=== PATIENT | male | born 1980 | race Caucasian/White ===

== ENCOUNTER 2023-06-10 04:25 | Outpatient (CLI) | payer MEDICAID, SELFPAY ==
[2023-06-10] MEDS: Inhaler, Assist Device 1 EACH MC (09:08)
[2023-06-10] MEDS: Levalbuterol HFA 15 GM INH 4 PUFF IH (09:08)
--- NOTE | 2023-06-14 10:32 | W.PFT ---
Date of service: 06/10/23 Time of Service: 07:51 Pulmonary Function Test Result Indications: Dyspnea Interpretation Spirometry: There is no airflow limitation. There is no bronchodilator response. Lung Volumes: Normal lung volumes Diffusion Capacity: Elevated diffusion Airway Pressure: Normal airways resistance. Impression Normal pulmonary function testing. The elevated diffusion is likely due to the elevated BMI. Clinical Correlation therefore is recommended.
== END 2023-06-10 04:26 | disposition home or self-care (01) ==
LOC: RT 04:25
PROVIDERS: PCP Internal Medicine; Visit Provider Surgery
DX: J45.909 Unspecified asthma, uncomplicated (principal)
CPT/HCPCS: 94060; 94726; 94729

== ENCOUNTER 2023-06-13 09:15 | Outpatient (CLI) | payer MEDICAID, SELFPAY ==
[2023-06-13 09:46] LABS: Abs Immature Grans 0.03 10^3/uL (0.0-0.06); Absolute Basophil Count 0.04 10^3/uL (0.0-0.2); Absolute Eosinophil Count 0.06 10^3/uL (0.0-0.7); Absolute Lymphocyte Count 1.54 10^3/uL (1.2-3.4); Absolute Monocyte Count 0.56 10^3/uL (0.1-0.8); Absolute Neutrophil Count 3.69 10^3/uL (1.2-6.7); Basophils % 0.7; HCT 47.6 % (40.0-50.0); HGB 16.1 g/dL (13.5-17.5); Immature Grans % 0.5; MCH 28.8 pg (27.0-33.0); MCHC 33.8 % (32.0-36.0); MCV 85 fL (80-95); MPV 8.7 fL (8.0-11.0); Monocytes % 9.5; Neutrophils % 62.3; Platelet Count 335 10^3/uL (130-400); RBC 5.59 10^6/uL (4.36-5.78); RDW 12.9 % (11.8-14.1); RDW-SD 40.1 fL; WBC 5.92 10^3/uL (4.4-10.8)
[2023-06-15 08:20] LABS: IgE 84 IU/mL (<158)
== END 2023-06-13 09:16 | disposition home or self-care (01) ==
LOC: LBO 09:16
PROVIDERS: PCP Internal Medicine; Visit Provider Physician Assistant Surgical
DX: J82.83 Eosinophilic asthma (principal); G47.33 Obstructive sleep apnea (adult) (pediatric); R06.09 Other forms of dyspnea; Z13.89 Encounter for screening for other disorder
CPT/HCPCS: 36415; 82785; 85025

== ENCOUNTER 2023-08-16 11:01 | Day surgery (SDC) | payer MEDICAID, SELFPAY ==
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
--- NOTE | 2023-08-15 15:47 | PDOC.DSDIS_ITS ---
Date of service: 08/16/23 Time of Service: 16:10 Discharge Plan Disposition Patient Disposition: Home Condition: Good Discharge Details Reason For Visit: stomach and colon scopes Attending Provider: Ofelia Muñoz Primary Care Provider: Josefa,Local Home Meds and New Rx's Prescriptions: Continued Dulera 200-5 mcg/actuation HFA aerosol inhaler 2 puff inhalation BID omeprazole 40 mg capsule,delayed release(DR/EC) 40 mg PO DAILY Qty: 30 12RF albuterol sulfate [ProAir HFA] 90 mcg/actuation HFA aerosol inhaler 2 puff inhalation Q6H PRN loratadine [Allergy Relief (loratadine)] 10 mg tablet 10 mg PO DAILY PRN fluticasone propionate [Flovent HFA] See Rx Instructions inhalation DIRECTED Patient Comments: 08/16/23: pt reports he does not take now, replaced with Dulera Rx Instructions: inhaled as directed; Discontinued polyethylene glycol 3350 17 gram/dose powder 238 g PO ONCE Qty: 238 0RF Rx Instructions: take per colonoscopy instructions bisacodyl [Dulcolax (bisacodyl)] 5 mg tablet,delayed release (DR/EC) 5 mg PO ONCE Qty: 4 0RF Rx Instructions: take per colonoscopy instructions No Action cetirizine 10 mg tablet Patient Comments: TAKE ONE TABLET BY MOUTH EVERY DAY alprazolam 0.25 mg tablet Patient Comments: TAKE ONE TABLET BY MOUTH EVERY DAY NEEDED Discharge Instructions Additional Instructions: DSU Colonoscopy Post- Op Instructions Instructions for Everyone who is given Anesthesia: For your safety, please do the following for the next twenty-four (24) hours: *Do Not operate a motor vehicle (car, truck, motorcycle, etc.) *Do Not drink alcoholic beverages or use any recreational drugs for the first 24 hours or while taking pain medications. The medications in your body may have a reaction that can be dangerous. *Do Not make any important decisions or sign any important papers. Findings: Esophagus/stomach-grossly normal on visualization today. Biopsies pending. Colon: polyps-my office will send you a copy of the biopsy report in 2 to 3 weeks time, and when we want you to repeat the colonoscopy Follow up: Repeat colonoscopy in 5 years time, pending results of biopsy 1. No lifting over 20 pounds or strenuous activity for the first 24 hours after your procedure. After 24 hours there are no restrictions on your activity but you may feel fatigued for a few days. 2. After you arrive home you may have a light meal and return to your normal diet as you can tolerate it without feeling sick to your stomach. 3. You may have a bloated, gaseous feeling in your belly (abdomen) after a colonoscopy. Passing gas and belching will help. Walking or lying down on your left side with your knees flexed may relieve the discomfort. Call the office at [phone] (Office) or [phone] (Hospital) right away if you notice any of the following: a.Vomiting of blood or ?coffee ground stools?. b.Rectal bleeding 1Tbsp, blood clots or continuous bleeding. c.Severe belly (abdominal) pain. d.A hard distended belly (abdomen) and an inability to pass gas. 4. Please don?t expect to have a normal BM (bowel movement) for 2-3 days after your procedure. 5. If there are questions regarding the findings of your procedure, please contact your doctor 6. If you are unable to contact your doctor with a problem, contact the hospital at [phone]. 7. Continue all your regular medications unless directed otherwise. I understand the above instructions and have no questions. Signature of Patient or Adult Escort Name of Responsible Adult Escort Signature of Nurse Date/Time Stand Alone Forms: Anesthesia Discharge Connor Villegas (DSU) Activity:: see above Diet:: see above Discharge Orders Discharge Orders: Discharge Order (Routine); Ordered 08/16/23 Ordered By: Ofelia Muñoz DS: Diagnosis Discharge Diagnosis (1) Sleep apnea: Status: Acute (2) Gastroesophageal reflux disease with esophagitis and hemorrhage: Status: Acute (3) Periodic limb movement disorder (PLMD): Status: Acute (4) Sleep apnea, obstructive: Status: Chronic (5) Irritable bowel syndrome with constipation and diarrhea: Status: Acute (6) Chronic GERD: Status: Acute (7) Eosinophilic asthma: Status: Acute (8) Essential hypertension: Status: Acute (9) Family hx of colon cancer: Asessment and Plan: The patient is seen and examined after their colonoscopy.? The patient has been able to pass gas.? They are not having abdominal pain.? They have been able to tolerate liquids and a snack.? They do not have any nausea or vomiting.? They are not having any chest pain or shortness of breath.??? They are not having any rectal bleeding. Their vital signs have been stable-see nursing notes. We discussed findings during their colonoscopy, and any biopsies that were done/polyps that were removed. The patient will be sent a letter with any biopsy results, and when to repeat the colonoscopy.-see discharge instructions. Patient was given explicit instructions to follow-up regarding colonoscopy-refer to discharge instructions.? We reviewed resumption of medications. Patient verbalized understanding and discharged in stable and satisfactory condition- See nursing notes. (10) Adenomatous polyps: Status: Acute
--- NOTE | 2023-08-15 15:48 | W.COLOREPORT ---
Date of service: 08/16/23 Time of Service: 14:45 Colonoscopy Report Date of procedure: 08/16/23 Pre-op diagnosis general: Family history of colon cancer and IBS Post-op diagnosis procedure note: other (Polyps) Surgeon: Ofelia Muñoz Anesthesia Type: General:No Airway Estimated blood loss (mL): 4 Pathology: other Complications: None Disposition: same day Prep: Miralax/Dulcolax Retraction Time: 40 Procedure Description: After informed consent was obtained the patient was taken to the procedure room and placed in a left decubitous position. Monitors were applied and a time out was done. The patients name, date of , procedure, allergies to medications and metal in their body was reviewed. The patient was then sedated. Once sedated and comfortable a rectal exam was done. External exam was normal. Internal exam revealed a normal sphincter tone and no palpable masses. The prostate without masses. The scope was then introduced and retrofelexed. No internal hemorrhoids were identified. The scope was then advanced to the cecum without difficulty. The TI and appendiceal orifice were identified. The prep was BBPS 2 in all segments for total of 6. The scope was then slowly retracted over 40 minutes back into the rectum. There are no diverticula or AVMs identified. Biopsies of the colon are taken in the cecum and 70/40 cm & the rectum. I was unable to intubate the terminal ileum. He had x3 polyps at 30 cm. These ranged in size from 0.75 to .5 cm. They are all removed with a cold biopsy forcep. He had 3 polyps at 20 cm that are 0.5 cm in size and removed with a cold biopsy forcep. All specimens are retrieved and no bleeding is noted. The scope was removed and the patient was woken up and taken back to Same day surgery in stable condition. The patient tolerated the procedure well and there were no immediate complications. Follow up: The patient should follow up in 3-5 years, pathology pending, unless they develop changes in bowel habits or other new gastrointestinal complaints.
[2023-08-16 11:43] VITALS: BP 133/94; PULSE 72; RESP 18; TEMP 36.9; O2SAT 99
[2023-08-16] MEDS: Lactated Ringers 1,000 ML 80 ML IV (11:59)
--- NOTE | 2023-08-16 12:20 | W.ANESPRE ---
General Info Date of Service Date Performed: 08/16/23 Height: 6 ft 1.62 in Weight: 114.8 kg Body Mass Index (BMI): 32.8 Surgical Procedure: Operation Date: 08/16/23 11:50 Proposed Procedure Side Surgeon p Colonoscopy/Gastroscopy Ofelia Muñoz, Meds Allergies and Home Medications Allergies Allergy/AdvReac Type Severity Reaction Status Date / Time amoxicillin Allergy respiratory Unverified 08/16/23 11:48 distress Home Medication Medication Instructions Recorded albuterol sulfate 90 mcg/actuation 2 puff inhalation Q6H PRN 12/21/22 aerosol inhaler (ProAir HFA) loratadine 10 mg tablet (Allergy 10 mg PO DAILY PRN 12/21/22 Relief (loratadine)) fluticasone propionate [Flovent See Rx Instructions inhalation 05/23/23 HFA] DIRECTED omeprazole 40 mg capsule,delayed 40 mg PO DAILY #30 caps 06/02/23 release mometasone-formoterol HFA 200 2 puff inhalation BID 06/13/23 mcg-5 mcg/actuation aerosol inhaler (Dulera) alprazolam 0.25 mg tablet mg 08/16/23 cetirizine 10 mg tablet mg 08/16/23 Current Visit Medications: Current Medications Generic Name Dose Route Start Last Admin Trade Name Freq PRN Reason Stop Dose Admin Hyoscyamine Sulfate 0.125 mg 08/15/23 15:38 Hyoscyamine 0.125 Mg Sl/Oral/Chew SL 09/14/23 15:37 DIRECTED PRN Ringer's Solution 1,000 mls @ 80 mls/hr 08/16/23 06:00 08/16/23 11:59 IV 08/16/23 23:59 80 mls/hr INFUSION ASHOK Administration IV Miscellaneous Supplies 1 each 08/16/23 06:00 Iv Access IV 08/16/23 23:59 DIRECTED ASHOK Ondansetron HCl 4 mg 08/16/23 03:38 Ondansetron 4 Mg/2 Ml Vial IVP 09/15/23 03:37 Q4H PRN PRN Nausea / Vomiting Sodium Chloride 0 ml 08/16/23 06:00 Normal Saline Flush 10 Ml Syr IV 08/16/23 23:59 PRN PRN Sodium Chloride 0 ml 08/16/23 06:00 Normal Saline 10 Ml Vial IJ 08/16/23 23:59 DIRECTED PRN Sterile Water 0 ml 08/16/23 06:00 Water,Injection,Sterile 10 Ml Vial IJ 08/16/23 23:59 DIRECTED PRN PFSH Active Problems Active Problems: Problem Status Onset Code Sleep apnea G47.30 Gastroesophageal reflux disease with esophagitis and hemorrhage K21.01 Periodic limb movement disorder (PLMD) G47.61 Sleep apnea, obstructive G47.33 Irritable bowel syndrome with constipation and diarrhea K58.2 Chronic GERD K21.9 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 BROWER (dyspnea on exertion) R06.09 SOB (shortness of breath) R06.02 Thrush 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 Essential hypertension I10 Medical History Medical History Family hx of colon cancer Jacobo note = brother 1 year older than pt History of reactive airway disease Surgical History Surgical History Hx of hernia repair Hx of lipoma removal Cholecystectomy Tobacco Smoking/Tobacco Use Status: Former Tobacco Use Smokeless tobacco user: chewing tobacco Second hand exposure: No Alcohol Alcohol Intake: never Substance Use Substance use: Never Substance use type: does not use Details: 08/16/23: Quit chewing tobacco 4 months ago Vital Signs and Lab Results Vital Signs Most Recent Vital Signs in EMR: Most Recent Vital Signs Temp Pulse Resp BP Pulse Ox 36.9 C 72 18 133/94 H 99 08/16/23 11:43 08/16/23 11:43 08/16/23 11:43 08/16/23 11:43 08/16/23 11:43 Lab Results Blood Type / Crossmatch: No Data to Display Complete Blood Count: No Data to Display Complete Metabolic Panel: No Data to Display Liver Function Panel: No Data to Display Coagulation Panel: No Data to Display Cardiac Panel: No Data to Display Arterial Blood Gas: No Data to Display Venous Blood Gas: No Data to Display Pancreas Panel: No Data to Display Thyroid Panel: No Data to Display Infectious Disease: No Data to Display Blood Cultures: No Data to Display Toxicology Panel: No Data to Display Imaging and Studies Imaging and Studies Study information below may be from another EMR and interpreted by another provider. Please see original notes in EMR for more complete details. Pulmonary Function Summary: Interpretation Spirometry: There is no airflow limitation. There is no bronchodilator response. Lung Volumes: Normal lung volumes Diffusion Capacity: Elevated diffusion Airway Pressure: Normal airways resistance. Impression Normal pulmonary function testing. The elevated diffusion is likely due to the elevated BMI. Clinical Correlation therefore is recommended. 06/14/23 Anesthesia Assessment and Plan Anesthesia History Personal History: No History of Anesthesia Complications Family History: No Family History of Anesthesia Complications Exercise Tolerance Exercise Tolerance: Metabolic Equivalents>4 (most days but occasionally limited due to SOB, no issues today) Pertinent Negatives Pertinent Negatives: No Symptoms of GERD (well controlled with meds), No Major Cardiovascular Symptoms or Complaints and No Major Pulmonary Symptoms or Complaints Cardiac & Pulmonary Exam Cardiac Exam: Normal S1/S2 Heart Sounds Pulmonary Exam: Clear Bilateral Breath Sounds Implantable Cardiac Device Does patient have a Pacemaker or an ICD?: No Airway Exam Known Difficult Airway: No Mallampati Class: 2 Mouth Opening: Normal (> 3cm) Thyromental Distance: Greater than 3 cm Neck Range of Motion: Full ROM Neck Circumference: Normal Teeth Condition: Normal Dentition ASA Classification ASA Score: ASA 2 Emergency Case?: No NPO Status NPO Status: NPO Clears >2 hours, Solids >8 hours Anesthesia Plan Resuscitation Status: Full Code Anesthesia Technique: General Anesthesia Airway Planned: Natural Airway Monitors Used: Standard Monitors
[2023-08-16 12:23] VITALS: BMI 32.8
--- NOTE | 2023-08-16 13:36 | BOWEL_PTH ---
PATIENT: Hardeep Poe LOC: [facility] U#:[id number] AGE/SX: 42/M ROOM: RE08/16/[address]: Ofelia Muñoz : 1980 BED: DIS: 08/16/2023 SPEC #: [id number] RECD: 08/16/23 18:38 STATUS: PARDEEP RE #: [id number] RIVAS: 08/16/23 13:[address]: Ofelia Muñoz DEPT: Surgical Specimen RECD BY: Mel Storey ENTERED: 08/16/23 18:41 SP TYPE: Bowel OTHR DR: No Local Tissues: 1 - BIOPSY BOWEL 2 - BIOPSY BOWEL 3 - STOMACH BIOPSY 4 - STOMACH BIOPSY 5 - ESOPHAGUS BIOPSY 6 - ESOPHAGUS BIOPSY 7 - ESOPHAGUS BIOPSY 8 - BIOPSY BOWEL 9 - BIOPSY BOWEL 10 - BIOPSY BOWEL 11 - BIOPSY BOWEL 12 - BIOPSY BOWEL 13 - BIOPSY BOWEL Procedures: GROSS AND MICRO LEVEL 4 Comments: [id number]
[2023-08-16 14:38] VITALS: BP 116/64; PULSE 62; RESP 16; TEMP 36.2; O2SAT 93
[2023-08-16 15:14] VITALS: BP 119/67; PULSE 73; RESP 18; TEMP 36.6; O2SAT 73
--- NOTE | 2023-08-16 16:12 | W.ANESPOSTOP ---
Postoperative Evaluation Date, Time and Location Date Performed: 08/16/23 Time Performed: 16:12 Patient Location: Day Surgery Unit Vital Signs Most Recent Imported Vital Signs: Most Recent Vital Signs Temp Pulse Resp BP Pulse Ox 36.6 C 73 18 119/67 73 L 08/16/23 15:14 08/16/23 15:14 08/16/23 15:14 08/16/23 15:14 08/16/23 15:14 Pain Score Most Recent Pain Score: Most Recent Pain Score Pain Level 0 08/16/23 15:14 Assessment Mental Status: Awake (Alert & Oriented to Patient Baseline) Airway and Respiratory Function: Patent airway with normal (patient baseline) respiratory exam Cardiovascular Function: Hemodynamically Stable Hydration Status: Adequately Hydrated Nausea & Vomiting: No Nausea or Vomiting Pain: Pt. Denies Any Pain Peripheral Nerve Block: Patient did not receive a nerve block
--- NOTE | 2023-08-16 21:17 | ENDO_ITS ---
Date of service: 08/16/23 Time of Service: 21:17 Endoscopy Report DATE OF PROCEDURE: 08/16/23 PRE-OP DIAGNOSIS: Medication refractory GERD POST-OP DIAGNOSIS: other (Mild gastritis) SURGEON: Ofelia Muñoz ANESTHESIA TYPE: General:No Airway ESTIMATED BLOOD LOSS: 2 PATHOLOGY: other COMPLICATIONS: None DISPOSITION: same day PREP: Miralax/Dulcolax PROCEDURE DESCRIPTION: After informed consent was obtained the patient was take to the procedure room and placed in a supine position. Monitors were applied and a time out was done. The patients name, date of , procedure type, allergies to medications and metal in their body was reviewed. A bite block was placed and the patient was sedated. Once sedated and comfortable the gastroscope was advanced through the oropharynx which was grossly normal into the esophagus. The proximal and mid-e sophagus were normal. In the distal esophagus there are no diverticula/strictures/varices. The scope was advanced into the stomach and through the pylorus into the 3rd portion of the duodenum. The duodenum was noted to be normal. Biopsies were done , all specimens are retrieved and no bleeding is noted the scope was retracted back into the stomach and biopsies were done to rule out H. pylori. There were no ulcers. There is maybe some mild gastritis along the greater curvature/dependent portions of the stomach. There are multiple hypertrophied Grzegorz's glands the scope was retroflexed. The cardia and fundus were noted to be normal. There is some mild irregularity in the fundus/gastric side of the GE junction. Biopsies taken here. There is no hiatal hernia noted. The scope was retracted back into the esophagus and biopsies were done of the GE junction to rule out Phillips's. The Z line was regular. The GE junction was at 40 cm. The scope was removed and the patient was woken up and taken back to [facility] in stable condition.
== END 2023-08-16 16:27 | disposition home or self-care (01) ==
LOC: SUR 11:02
PROVIDERS: Visit Provider Surgery
PROC: (CPT 45380; principal; 2023-08-16 11:45)
DX: Z12.11 Encounter for screening for malignant neoplasm of colon (principal); K21.9 Gastro-esophageal reflux disease without esophagitis; K63.5 Polyp of colon; G47.30 Sleep apnea, unspecified; I10 Essential (primary) hypertension; K58.2 Mixed irritable bowel syndrome; Z80.0 Family history of malignant neoplasm of digestive organs; K22.89 Other specified disease of esophagus
CPT/HCPCS: 45380; 43239; 88305; J2704